=== PATIENT | male | born 1980 | race Caucasian/White ===

== ENCOUNTER 2021-12-24 14:59 | Outpatient (CLI) | payer OTHER | END 2021-12-24 15:16 | disposition home or self-care (01) | LOC: RAD 14:59 | DX: M99.01 Segmental and somatic dysfunction of cervical region (principal); M99.02 Segmental and somatic dysfunction of thoracic region; M99.03 Segmental and somatic dysfunction of lumbar region; M99.04 Segmental and somatic dysfunction of sacral region; S23.41XA Sprain of ribs, initial encounter ==

== ENCOUNTER 2022-04-21 14:11 | Outpatient (CLI) | payer OTHER | END 2022-04-21 14:21 | disposition home or self-care (01) | LOC: PPH VACUNA 14:11 | PROVIDERS: ATTEND Emergency Medicine Pediatric Emergency Medicine | DX: Z23 Encounter for immunization (principal) ==